=== PATIENT | female | born 1985 | race Caucasian/White ===

== ENCOUNTER 2019-07-28 20:15 | Outpatient (CLI) | payer BC ==
[2019-07-28 21:08] VITALS: BP 142/88; PULSE 99; RESP 16; TEMP 98.9
--- NOTE | 2019-07-30 11:29 | P.MSEPDOC ---
Presenting Problems - Arrival Data Date of Arrival on Unit: 07/28/19 Time of Arrival on Unit: 20:15 Mode of Transport: Ambulatory - Complaint OB-Reason for Admission/Chief Complaint: Decreased Movement Medical History - Information : 1 Para: 0 Term: 0 : 0 Abortions: Spontaneous or Elective: 0 Number of Living Children: 0 - Gestational Age Gestational Age by MOISES (wks/days): 33 Weeks and 3 Days Review of Systems - Review of Systems Constitutional: No problems Breast: No problems ENT: No problems Cardiovascular: No problems Respiratory: No problems Gastrointestinal: No problems Genitourinary: No problems Musculoskeletal: No problems Neurological: No problems Skin: No problems Vital Signs - Temperature Temperature: 98.9 F Temperature Source: Temporal Artery Scan - Pulse Right Pulse Rate: 99 Pulse Assessment Method: Pulse Oximetry - Respirations Respiratory Rate: 16 O2 Sat by Pulse Oximetry: 97 - Blood Pressure Right Arm Blood Pressure: 142/88 Blood Pressure Mean: 106 Blood Pressure Source: Automatic Cuff Medical Screen Scoring (Pre) - Cervical Exam Dilation: Exam Deferred Effacement: Exam Deferred Membranes: Intact - Uterine Contractions Frequency: < 36 weeks = 6 Duration: N/A Intensity: N/A - Maternal Vital Signs Maternal Temperature: N/A Maternal Blood Pressure: N/A Signs of Preeclampsia: N/A Maternal Respirations: N/A - Maternal Trauma Maternal Trauma: N/A - Assessment - Baby A Baseline FHR: 145 Heart Rate - NICHD Category: Category I (Normal) = 0 NST: Reactive Position: N/A - Total Score - Baby A Total Score - Baby A: 6 - Total Score - Baby B Total Score - Baby B: 6 - Total Score - Baby C Total Score - Baby C: 6 - Level of Risk - Baby A Level of Risk - Baby A: Medium (6-9) - Level of Risk - Baby B Level of Risk - Baby B: Medium (6-9) - Level of Risk - Baby C Level of Risk - Baby C: Medium (6-9) Physician Notification (Pre) - Physician Notified Physician Notified Date: 07/28/19 Physician Notified Time: 20:45 - Notification Comment Comment: reported on pts c/o decreased fm this evening. reported on no pain, bleeding or leaking, and no other complaints or complications. dr lensmeyer in dept, reviewed strip. orders to d/c home with instructions, keep scheduled appt in office on . return with new or worsening needs. Disposition - Disposition OB Disposition: Discharge to home Discharge Date: 07/28/19 Discharge Time: 20:52 I agree with the RN Medical Screening Exam: Yes Risk & Benefit of care provided described in d/c instruction: Yes Diagnosis: DECREASED MOVEMENTS, THIRD TRIMESTER, FETUS 1
== END 2019-07-28 20:52 | disposition home or self-care (01) ==
LOC: FBPOP 20:15
PROVIDERS: ATTEND Obstetrics & Gynecology
DX: O36.8131 Decreased fetal movements, third trimester, fetus 1 (principal); Z3A.33 33 weeks gestation of pregnancy
CPT/HCPCS: 59025; 99213

== ENCOUNTER 2019-08-14 10:21 | Outpatient (CLI) | payer BC ==
[2019-08-14 12:05] VITALS: BP 132/77; PULSE 104; RESP 20; TEMP 98.4
--- NOTE | 2019-09-25 10:39 | P.MSEPDOC ---
Presenting Problems - Arrival Data Date of Arrival on Unit: 08/14/19 Time of Arrival on Unit: 10:32 Mode of Transport: Ambulatory - Complaint OB-Reason for Admission/Chief Complaint: NST Comment: pt arrived c/o decreased movement since last night Medical History - Information : 1 Para: 0 Term: 0 : 0 Abortions: Spontaneous or Elective: 0 Number of Living Children: 0 - Gestational Age Gestational Age by MOISES (wks/days): 35 Weeks and 6 Days Review of Systems - Review of Systems Constitutional: No problems Breast: No problems ENT: No problems Cardiovascular: No problems Respiratory: No problems Gastrointestinal: No problems Genitourinary: No problems Musculoskeletal: No problems Neurological: No problems Skin: No problems Vital Signs - Temperature Temperature: 98.4 F Temperature Source: Oral - Pulse Right Brachial Pulse Rate: 104 Pulse Assessment Method: Automatic Cuff - Respirations Respiratory Rate: 20 Oxygen Delivery Method: Room Air - Blood Pressure Right Arm Blood Pressure: 132/77 Blood Pressure Mean: 95 Blood Pressure Source: Automatic Cuff Medical Screen Scoring (Pre) - Cervical Exam Dilation: Exam Deferred Effacement: Exam Deferred Membranes: Intact - Uterine Contractions Frequency: > 5 minutes apart = 1 Duration: N/A Intensity: N/A - Maternal Vital Signs Maternal Temperature: N/A Maternal Blood Pressure: N/A Signs of Preeclampsia: N/A Maternal Respirations: N/A - Maternal Trauma Maternal Trauma: N/A - Assessment - Baby A Baseline FHR: 140 Heart Rate - NICHD Category: Category I (Normal) = 0 NST: Reactive Position: N/A Station: N/A - Total Score - Baby A Total Score - Baby A: 1 - Total Score - Baby B Total Score - Baby B: 1 - Total Score - Baby C Total Score - Baby C: 1 - Level of Risk - Baby A Level of Risk - Baby A: Low (0-5) - Level of Risk - Baby B Level of Risk - Baby B: Low (0-5) - Level of Risk - Baby C Level of Risk - Baby C: Low (0-5) Physician Notification (Pre) - Physician Notified Physician Notified Date: 08/14/19 Physician Notified Time: 11:40 New Order Received: Yes - Notification Comment Comment: may discharge to home undelivered with instructions. pt had a reactive NST Disposition - Disposition OB Disposition: Discharge to home Discharge Date: 08/14/19 Discharge Time: 11:55 I agree with the RN Medical Screening Exam: Yes Risk & Benefit of care provided described in d/c instruction: Yes Diagnosis: DECREASED MOVEMENTS, THIRD TRIMESTER, FETUS 1
== END 2019-08-14 11:55 | disposition home or self-care (01) ==
LOC: FBPOP 10:21
PROVIDERS: ATTEND Obstetrics & Gynecology Obstetrics
DX: O36.8131 Decreased fetal movements, third trimester, fetus 1 (principal); Z3A.35 35 weeks gestation of pregnancy
CPT/HCPCS: 59025; 99213

== ENCOUNTER 2019-09-02 21:56 | Inpatient (IN) | payer BC ==
[2019-09-02] MEDS ORDERED: TERBUTALINE 1 MG/ML VIAL SQ PRN (22:33)
[2019-09-02] MEDS ORDERED: OXYTOCIN 10 UNIT/ML 1 ML VIAL IM PRN (22:33)
[2019-09-02] MEDS ORDERED: LIDOCAINE 0.5% (PF) 5 MG/ML (50 ML SDV) SQ PRN (22:33)
[2019-09-02] MEDS ORDERED: CARBOPROST TROMETHAMINE 250 MCG/ML 1 ML AMP IM PRN (22:33)
[2019-09-02] MEDS ORDERED: METHYLERGONOVINE 0.2 MG/ML 1 ML AMP IM PRN (22:33)
[2019-09-02] MEDS ORDERED: BUTORPHANOL 1 MG/ML 1 ML VIAL IV PRN (22:34)
[2019-09-02] MEDS: LACTATED RINGERS 1,000 ML IV SCH (23:15)
[2019-09-02 23:44] LABS: Basophils % (A) 0 %; Eosinophils # (A) 0.1 k/uL (0-0.7); Eosinophils % (A) 1 %; HCT 37.7 % (34.0-46.0); Lymphocytes # (A) 1.8 k/uL (1.0-4.8); Lymphocytes % (A) 17 %; MCH 32.4 pg (25.0-35.0); MCHC 34.5 g/dL (31.0-37.0); MCV 94.1 fL (80.0-100.0); Mean Platelet Volume 10.2; Monocytes # (A) 0.5 k/uL (0-1.0); Monocytes % (A) 5 %; Neutrophils # (A) 7.8 k/uL (1.3-7.7); Neutrophils % (A) 75 %; Platelet Count 300 k/uL (150-450); RBC 4.01 m/uL (3.80-5.40); RDW 12.8 % (11.5-15.5); WBC 10.4 k/uL (3.8-10.6)
[2019-09-03] MEDS ORDERED: OXYTOCIN 30 UNITS/500 ML NS 30 UNIT in SALINE 1 500ML.BAG IV SCH (03:00)
[2019-09-03] MEDS: LACTATED RINGERS 1,000 ML IV SCH ×2 (06:46→07:51)
[2019-09-03] MEDS ORDERED: SODIUM CHLORIDE 0.9% 100 ML BAG ONE (07:32)
[2019-09-03] MEDS ORDERED: fentaNYL (PF) 50 MCG/ML 5 ML AMP ONE (07:32)
[2019-09-03] MEDS ORDERED: ROPIVACAINE 5MG/ML 20ML VIAL ONE (07:32)
--- NOTE | 2019-09-03 08:17 | P.HPOB ---
History of Present Illness H&P Date: 09/03/19 Chief Complaint: IUP at 38 and 4/sevenths weeks, spontaneous rupture of memfarida julian This is a pleasant 34-year-old 1 para 0 at 38-4/7 weeks that presents to labor and delivery with complaints of spontaneous rupture of membranes, clear in nature. Patient states her water broke around 2100 and it was noted to be clear. Patient noted and a regular contraction. On presentation to labor and delivery she was noted to be grossly ruptured, cervix was noted to be 1 cm. She was maurice every 2-5 minutes and the baby had category 1 heart tones. Patient has been receiving routine care with myself that has been essentially uncomplicated. On blood work showed a blood type of O+, rubella immune, B surface antigen negative, HIV negative, RPR nonreactive, GBS is negative. Review of Systems Constitutional: Denies chills, Denies fatigue, Denies fever Ears, nose, mouth and throat: Denies headache Cardiovascular: Reports leg edema Respiratory: Denies dyspnea Gastrointestinal: Denies nausea, Denies vomiting Genitourinary: Reports Past Medical History Past Medical History: No Reported History History of Any Multi-Drug Resistant Organisms: None Reported Past Surgical History: No Surgical Hx Reported Past Anesthesia/Blood Transfusion Reactions: No Reported Reaction Past Psychological History: Depression Smoking Status: Never smoker Past Alcohol Use History: None Reported Past Drug Use History: None Reported - Past Family History Father Family Medical History: Blood Disorder, Coronary Artery Disease (CAD) Additional Family Medical History / Comment(s): hemocromatosis, dad from heart attack, Medications and Allergies Home Medications Medication Instructions Recorded Confirmed Type Pnv,Calcium 72/Iron/Folic Acid 1 each PO DAILY 07/28/19 09/02/19 History [ Plus Tablet] Allergies Allergy/AdvReac Type Severity Reaction Status Date / Time No Known Allergies Allergy Verified 09/02/19 22:09 Exam Osteopathic Statement: *. No significant issues noted on an osteopathic structural exam other than those noted in the History and Physical/Consult. Vital Signs Temp Pulse Resp BP Pulse Ox 09/02/19 23:15 99.2 F 83 18 134/88 100 09/02/19 22:30 99.2 F 83 18 134/88 100 Intake and Output 09/02/19 09/03/19 09/03/19 22:59 06:59 14:59 Intake Total 1000 Balance 1000 Intake: IV 1000 Other: # Voids 4 Weight 73.028 kg 73.028 kg Targeted physical exam is performed in this date in general this a well- nourished well-developed female in no acute distress, breathing is noted to be nonlabored heart has a regular rate and rhythm, abdomen is gravid and appropriate for gestational age, heart tones returned be category 1 and she is maurice every 2-3 minutes, on cervical exam she is 4/90/-2. Results Result Diagrams: 09/02/19 23:05 Abnormal Lab Results - Last 24 Hours (Table) 09/02/19 Range/Units 23:05 Neutrophils # 7.8 H (1.3-7.7) k/uL Assessment and Plan (1) Term Current Visit: Yes Status: Acute Code(s): Z34.90 - ENCNTR FOR SUPRVSN OF NORMAL , UNSP, UNSP TRIMESTER SNOMED Code(s): 19816577 (2) SROM (spontaneous rupture of membranes) Current Visit: Yes Status: Acute Code(s): NQM5174 - SNOMED Code(s): 516906019 Plan: Patient is admitted to labor and delivery for augmentation of labor given spontaneous rupture of membranes. Patient will be ruptured 12 hours at 9 AM this morning therefore antibiotics will be started. This was discussed the patient and she states understanding. We'll continue Pitocin augmentation per hospital protocol, and anticipate spontaneous vaginal delivery later today.
[2019-09-03] MEDS ORDERED: AMPICILLIN 2,000 MG in SODIUM CHLORIDE 0.9% 100 ML IVPB STA (08:18)
[2019-09-03] MEDS ORDERED: WITCH HAZEL 1 EACH MED..PAD TOPICAL PRN (10:46)
[2019-09-03] MEDS ORDERED: diphenhydrAMINE 25 MG CAP PO PRN (10:46)
[2019-09-03] MEDS ORDERED: diphenhydrAMINE 50 MG CAP PO PRN (10:46)
[2019-09-03] MEDS ORDERED: ACETAMINOPHEN TAB 325 MG TAB PO PRN (10:46)
[2019-09-03] MEDS ORDERED: SIMETHICONE 80 MG CHEWABLE PO PRN (10:46)
[2019-09-03] MEDS ORDERED: LANOLIN CREAM 5 GM TUBE TOPICAL PRN (10:46)
[2019-09-03] MEDS ORDERED: BENZOCAINE/MENTHOL SPRAY 1 GM/SPRAY AEROSOL TOPICAL PRN (10:46)
[2019-09-03] MEDS ORDERED: diphenhydrAMINE 50 MG/ML 1 ML VIAL IVP PRN ×2 (10:46)
[2019-09-03] MEDS ORDERED: HYDROcodone/APAP 5-325MG 1 EACH TAB PO PRN (10:46)
[2019-09-03] MEDS ORDERED: HYDROCORTISONE 2.5% RECTAL CREAM 30 GM TUBE RECTAL PRN (10:46)
[2019-09-03] MEDS ORDERED: ZOLPIDEM 5 MG TAB PO PRN (10:46)
--- NOTE | 2019-09-03 10:50 | P.PROBDLV ---
Vaginal Delivery Note - . Vaginal Delivery Note: This pleasant 34-year-old 1 para 0 at 38-4/7 weeks that presents with complaints of spontaneous rupture of membranes at 2100. Patient noted the fluid to be clear in nature. Patient was admitted to labor and delivery and Pitocin augmentation late of labor was begun approximate 6 hours after rupture of membranes. Patient was noted to be GBS negative. Pitocin was started per hospital protocol. Patient progressed to 4 cm became uncomfortable therefore requested epidural placement. Epidural was placed without difficulty by the anesthesia . Patient progressed to complete began pushing minute normal spontaneous vaginal delivery of a viable female infant at 1031, weight of 6 pounds 8.9 ounces with Apgars of 9 and 10 at one and 5 minutes respectively. After two-minute delayed the umbilical cord was doubly clamped and cut the placenta was delivered spontaneously intact with a three-vessel cord being noted. No vaginal lacerations were noted. A small hematoma was noted on the patient's left vaginal sidewall no expansion was noted. Estimated blood loss was 150 mL patient and infant tolerated delivery well and are resting comfortably.
[2019-09-03] MEDS ORDERED: OXYTOCIN 20 UNITS/1000 ML NS 1,000 ML IV SCH (11:00)
[2019-09-03] MEDS ORDERED: ROPIVACAINE 100 MG, fentaNYL (PF) 200 MCG in SODIUM CHLORIDE 0.9% 76 ML EPIDURAL ONE (13:11)
[2019-09-03] MEDS: IBUPROFEN 600 MG TAB PO PRN (18:50)
[2019-09-03] MEDS: PRENATAL VIT-IRON-FOLIC ACID 1 EACH CAP PO SCH (21:01)
[2019-09-03] MEDS: AMPICILLIN 1,000 MG in SODIUM CHLORIDE 0.9% 50 ML IVPB SCH (21:02)
[2019-09-03] MEDS: SENNOSIDES-DOCUSATE SODIUM 1 EACH TAB PO SCH (21:04)
[2019-09-04] MEDS: IBUPROFEN 600 MG TAB PO PRN (07:52)
[2019-09-04] MEDS: PRENATAL VIT-IRON-FOLIC ACID 1 EACH CAP PO SCH (07:53)
[2019-09-04] MEDS: SENNOSIDES-DOCUSATE SODIUM 1 EACH TAB PO SCH (07:53)
[2019-09-04 08:04] LABS: Basophils % (A) 0 %; Eosinophils # (A) 0.2 k/uL (0-0.7); Eosinophils % (A) 1 %; HCT 34.9 % (34.0-46.0); HGB 11.8 gm/dL (11.4-16.0); Lymphocytes % (A) 15 %; MCH 32.6 pg (25.0-35.0); MCHC 33.9 g/dL (31.0-37.0); MCV 96.1 fL (80.0-100.0); Mean Platelet Volume 10.2; Monocytes # (A) 0.6 k/uL (0-1.0); Monocytes % (A) 4 %; Neutrophils # (A) 9.8 k/uL (1.3-7.7); Neutrophils % (A) 77 %; Platelet Count 281 k/uL (150-450); RBC 3.63 m/uL (3.80-5.40); RDW 12.9 % (11.5-15.5); WBC 12.7 k/uL (3.8-10.6)
--- NOTE | 2019-09-04 08:33 | P.DS ---
Providers Date of admission: 09/02/19 22:42 Expected date of discharge: 09/04/19 Attending physician: Marie Roberts Primary care physician: Stated None - Discharge Diagnosis(es) (1) Term Current Visit: Yes Status: Acute (2) SROM (spontaneous rupture of membranes) Current Visit: Yes Status: Acute (3) Status post vaginal delivery Current Visit: Yes Status: Acute Hospital Course: This is a pleasant 34-year-old 1 para 0 at 38-4/7 weeks that presented to labor and delivery with spontaneous rupture of membranes. Patient had been receiving routine care with myself and has been essentially u ncomplicated. Patient was admitted to labor and delivery and eventually Pitocin augmentation of labor was begun. Patient became uncomfortable requesting epidural. Epidural was placed without difficulty by the anesthesia department. Patient progressed to complete began pushing and had normal spontaneous vaginal delivery of a viable female infant at 1031, weight of 6 pounds 8.9 ounces with Apgars of 9 and 10 at one and 5 minutes respect daily. She did not sustain any vaginal lacerations during delivery. On this day #1 she is ambulating and voiding without difficulty. She is tolerating a regular diet without nausea or vomiting. Her lochia is minimal she is breast-feeding without difficulty. She does wish discharge home at 24 hours. Patient Condition at Discharge: Good Plan - Discharge Summary New Discharge Prescriptions: No Action Pnv,Calcium 72/Iron/Folic Acid [ Plus Tablet] 1 each PO DAILY Discharge Medication List Pnv,Calcium 72/Iron/Folic Acid [ Plus Tablet] 1 each PO DAILY 07/28/19 [History] Patient Instructions/Handouts: Vaginal Delivery (DC), Vaginal Delivery (GEN) Discharge Disposition: HOME SELF-CARE
[2019-09-05 01:30] VITALS: TEMP 98.1
[2019-09-05] MEDS: SENNOSIDES-DOCUSATE SODIUM 1 EACH TAB PO SCH ×2 (03:54→09:43)
[2019-09-05] MEDS: PRENATAL VIT-IRON-FOLIC ACID 1 EACH CAP PO SCH (09:43)
[2019-09-05 09:47] VITALS: BP 132/68; PULSE 83; RESP 16
== END 2019-09-05 15:10 | disposition home or self-care (01) | DRG 807 ==
LOC: FBPOP 21:56 → 4FBP 22:42
PROVIDERS: ADMIT Obstetrics & Gynecology Obstetrics; ATTEND Obstetrics & Gynecology Obstetrics
PROC: 10E0XZZ Delivery of Products of Conception, External Approach (ICD-10-PCS; principal; 2019-09-03)
PROC: 00HU33Z Insertion of Infusion Device into Spinal Canal, Percutaneous Approach (ICD-10-PCS; principal; 2019-09-03)
PROC: 3E0R3BZ Introduction of Anesthetic Agent into Spinal Canal, Percutaneous Approach (ICD-10-PCS; principal; 2019-09-03)
DX: O71.7 Obstetric hematoma of pelvis (principal); Z37.0 Single live birth; Z3A.38 38 weeks gestation of pregnancy; Z86.59 Personal history of other mental and behavioral disorders; Z82.49 Family history of ischemic heart disease and other diseases of the circulatory system
CPT/HCPCS: 59025; 84112; 85025; 86850; 86900; 86901; 99213

== ENCOUNTER 2023-07-28 10:07 | Emergency (ER) | payer BC ==
--- NOTE | 2023-07-28 11:21 | CT ---
EXAMINATION TYPE: CT brain willis araiza DATE OF EXAM: 07/28/2023 COMPARISON: HISTORY: HEADACHE, OFF BALANCE AFTER HITTING FACE ON SOMETHING X5 DAYS AGO, B/L BRUSIING TO EYES CT DLP: 986.5 mGycm Automated exposure control for dose reduction was used. TECHNIQUE: CT scan of the head and cervical spine are performed without contrast. FINDINGS: Head CT: Ventricles, basal cisterns and sulci over convexities within normal limits and there is no mass, mass effect or shift of midline structures. No abnormal density is seen throughout the brain parenchyma and there is no acute intra or extra-axia l hemorrhage. Posterior fossa including the brainstem, fourth ventricle and cerebellar pontine angles are grossly n ormal. The intraorbital contents appear normal and symmetric. Visualized paranasal sinuses are well aerated. CT cervical spine: Craniovertebral junction relationships and prevertebral soft tissues are normal. The cervical vertebral segments are normal in height and alignment and there is no fracture subluxati on. The disc spaces are well-maintained in height and there is no significant degenerative disc disease. The bony cervical canal is widely patent and there is no bony encroachment of the neural foramina. The paraspinal soft tissues unremarkable. IMPRESSION: 1. Head CT: No acute bleed or mass effect. 2. CT cervical spine: No acute trauma.
--- NOTE | 2023-07-28 11:23 | CT ---
EXAMINATION TYPE: CT facial bones wo con DATE OF EXAM: 07/28/2023 COMPARISON: HISTORY: HEADACHE, OFF BALANCE AFTER HITTING FACE ON SOMETHING X5 DAYS AGO, B/L BRUSIING TO EYES CT DLP: 986.5 mGycm Automated exposure control for dose reduction was used. TECHNIQUE: CT scan of the sinuses is performed without contrast, axial images are obtained, coronal r eformatted images are also reviewed. FINDINGS: The facial bones are intact and there is no fracture. The paranasal sinuses including the frontal, ethmoid, sphenoid, and maxillary sinuses bilaterally a re well-aerated without abnormal opacification. The ostiomeatal complex is patent bilaterally on the coronal images. Visualized portion of mastoid air cells show no abnormal opacification. The globes are intact bilate rally. IMPRESSION: 1. No facial bone fracture. 2. No sinusitis.
--- NOTE | 2023-07-28 11:37 | ED ---
Head Injury HPI - General Chief complaint: Head Injury Stated complaint: Fall,Dizziness Time Seen by Provider: 07/28/23 10:24 Source: patient, RN notes reviewed Mode of arrival: ambulatory Limitations: no limitations - History of Present Illness Initial comments: 38-year-old female presents emergency department chief complaint of head injury. Patient states this happened several days ago when she tripped over her cat striking her head on a countertop. She states that she lost conscious. She has been having ongoing headache, nausea vomiting, facial bruising. She states she just feels foggy. - Related Data Home Medications Medication Instructions Recorded Confirmed Vit No.180/Iron/Folic 1 each PO DAILY 07/28/19 09/02/19 [ Plus Tablet] Allergies/Adverse reactions: Allergies Allergy/AdvReac Type Severity Reaction Status Date / Time No Known Allergies Allergy Verified 07/28/23 10:23 Review of Systems ROS Statement: Those systems with pertinent positive or pertinent negative responses have been documented in the HPI. ROS Other: All systems not noted in ROS Statement are negative. Past Medical History Past Medical History: No Reported History History of Any Multi-Drug Resistant Organisms: None Reported Past Surgical History: No Surgical Hx Reported Past Anesthesia/Blood Transfusion Reactions: No Reported Reaction Past Psychological History: Depression Smoking Status: Never smoker Past Alcohol Use History: Occasional Past Drug Use History: None Reported - Past Family History Father Family Medical History: Blood Disorder, Coronary Artery Disease (CAD) Additional Family Medical History / Comment(s): hemocromatosis, dad from heart attack, General Exam Limitations: no limitations General appearance: alert, in no apparent distress Head exam: Present: atraumatic, normocephalic, normal inspection Eye exam: Present: PERRL, EOMI, periorbital tenderness (Bilateral ecchymosis). Absent: normal appearance, scleral icterus, conjunctival injection, periorbital swelling ENT exam: Present: mucous membranes moist, TM's normal bilaterally, normal external ear exam. Absent: normal exam (Nasal tenderness) Neck exam: Present: normal inspection, full ROM. Absent: tenderness, meningismus, lymphadenopathy Respiratory exam: Present: normal lung sounds bilaterally. Absent: respiratory distress, wheezes, rales, rhonchi, stridor Neurological exam: Present: alert, oriented X3, CN II-XII intact, reflexes normal. Absent: motor sensory deficit Course Vital Signs 07/28/23 07/28/23 10:21 11:59 Temperature 98.7 F 98.5 F Pulse Rate 73 70 Respiratory 20 18 Rate Blood Pressure 128/89 125/82 O2 Sat by Pulse 99 99 Oximetry Medical Decision Making - Medical Decision Making Was pt. sent in by a medical professional or institution (GUILLERMINA Garcia, PHYSIATRIST, urgent care, hospital, or fci...) When possible be specific @ -No Did you speak to anyone other than the patient for history (EMS, parent, family, police, friend...)? What history was obtained from this source @ -No Did you review nursing and triage notes (agree or disagree)? Why? @ -I reviewed and agree with nursing and triage notes Were old charts reviewed (outside hosp., previous admission, EMS record, old EKG, old radiological studies, urgent care reports/EKG's, fci records)? Report findings @ -No old charts were reviewed Differential Diagnosis (chest pain, altered mental status, abdominal pain women, abdominal pain men, vaginal bleeding, weakness, fever, dyspnea, syncope, headache, dizziness, GI bleed, back pain, seizure, CVA, palpatations, mental health, musculoskeletal)? @ -Contusion, orbital fracture, facial fracture, intracranial hemorrhage, cervical fracture EKG interpreted by me (3pts min.). @ -As above X-rays interpreted by me (1pt min.). @ -None done CT interpreted by me (1pt min.). @ -[CT brain, C-spine no acute intracranial, cervical fracture, malalignment, CT facial bones no acute fracture U/S interpreted by me (1pt. min.). @ -None done What testing was considered but not performed or refused? (CT, X-rays, U/S, labs)? Why? @ -None What meds were considered but not given or refused? Why? @ -None Did you discuss the management of the patient with other professionals (professionals i.e. GUILLERMINA Garcia, PHYSIATRIST, lab, RT, psych nurse, social director, jazz musician, teacher, diplomatic officer, major case detective)? Give summary @ -No Was smoking cessation discussed for >3mins.? @ -No Was critical care preformed (if so, how long)? @ -No Were there social determinants of health that impacted care today? How? (Homelessness, low income, unemployed, alcoholism, drug addiction, transportation, low edu. Level, literacy, decrease access to med. care, nursing home, rehab)? @ -No Was there de-escalation of care discussed even if they declined (Discuss DNR or withdrawal of care, Hospice)? DNR status @ -No What co-morbidities impacted this encounter? (DM, HTN, Smoking, COPD, CAD, Cancer, CVA, ARF, Chemo, Hep., AIDS, mental health diagnosis, sleep apnea, morbid obesity)? @ -None Was patient admitted / discharged? Hospital course, mention meds given and route, prescriptions, significant lab abnormalities, going to OR and other pertinent info. @ -[h discharge all imaging was negative. Patient has a facial contusion, concussion symptoms was discharged in stable condition return pressure discussed. Undiagnosed new problem with uncertain prognosis? @ -No Drug Therapy requiring intensive monitoring for toxicity (Heparin, Nitro, Insulin, Cardizem)? @ -No Were any procedures done? @ -No Diagnosis/symptom? @ -[Close head injury, concussion, facial contusion Acute, or Chronic, or Acute on Chronic? @ -Acute Uncomplicated (without systemic symptoms) or Complicated (systemic symptoms)? @ -[Uncomplicated Side effects of treatment? @ -[No Exacerbation, Progression, or Severe Exacerbation? @ -No Poses a threat to life or bodily function? How? (Chest pain, [place], [place], pneumonia, PE, COPD, DKA, ARF, appy, cholecystitis, CVA, Diverticulitis, Homicidal, Suicidal, threat to staff... and all critical care pts) @ -No Disposition Clinical Impression: Closed head injury, Contusion of face Disposition: HOME SELF-CARE Condition: Stable Instructions (If sedation given, give patient instructions): Concussion (ED) Additional Instructions: Please return to the Emergency Department if symptoms worsen or any other concerns. Is patient prescribed a controlled substance at d/c from ED?: No Referrals: Kelvin Toth MD [Primary Care Provider] - 1-2 days Time of Disposition: 11:37
[2023-07-28 12:14] VITALS: BP 125/82; PULSE 70; RESP 18; TEMP 98.5
== END 2023-07-28 12:00 | disposition home or self-care (01) ==
LOC: EC 10:07
DX: S00.12XA Contusion of left eyelid and periocular area, initial encounter (principal); S00.11XA Contusion of right eyelid and periocular area, initial encounter; S06.0XAA Concussion with loss of consciousness status unknown, initial encounter; R40.2410 Glasgow coma scale score 13-15, unspecified time; Z86.59 Personal history of other mental and behavioral disorders; W22.8XXA Striking against or struck by other objects, initial encounter
CPT/HCPCS: 70450; 70486; 72125; 99283

== ENCOUNTER → 2024-11-01 | Outpatient (CLI) | payer BC ==
[2024-11-02 01:48] LABS: Basophils # (A) 0.05 X 10*3/uL (0.00-0.10); Basophils % (A) 0.8 %; Eosinophils % (A) 1.6 %; HCT 43.5 % (37.2-46.3); HGB 14.4 g/dL (12.0-15.0); Lymphocytes # (A) 2.26 X 10*3/uL (0.90-5.00); Lymphocytes % (A) 35.1 %; MCHC 33.1 g/dL (32.0-37.0); MCV 96.7 FL (80.0-97.0); Mean Platelet Volume 11.8 FL (9.5-12.2); Monocytes # (A) 0.52 X 10*3/uL (0.20-1.00); Monocytes % (A) 8.1 %; NRBC Per 100 WBC 0 X 10*3/uL (0.00-0.01); Neutrophils % (A) 54.2 %; Platelet Count 316 X 10*3/uL (140-440); RDW 12.7 % (11.5-14.5); WBC 6.44 X 10*3/uL (4.50-10.00)
[2024-11-02 02:45] LABS: ALT 20 U/L (8-44); AST 22 U/L (13-35); Albumin 4.5 g/dL (3.8-4.9); Albumin/Globulin Ratio 1.67 Ratio (1.60-3.17); Alkaline Phosphatase 75 U/L (41-126); BUN/Creat Ratio 16.71 Ratio (12.00-20.00); Blood Urea Nitrogen 11.7 mg/dL (9.0-27.0); Calcium 9.4 mg/dL (8.7-10.3); Carbon Dioxide 21.7 mmol/L (21.6-31.8); Chloride 102 mmol/L (96-109); Chol/HDL Ratio 2.66 Ratio; Globulin 2.7 g/dL (1.6-3.3); Glucose 87 mg/dL (70-110); LDL Cholesterol,Calculated 153.3 mg/dL (0.0-131.0); Potassium 4.3 mmol/L (3.5-5.5); Sodium 136 mmol/L (135-145); T4, Free (Free Thyroxine) 1.18 ng/dL (0.80-1.80); Total Bilirubin 0.5 mg/dL (0.3-1.2); Total Protein 7.2 g/dL (6.2-8.2); VLDL Calculation 14.66 mg/dL (5.00-40.00)
== END | disposition home or self-care (01) ==
LOC: LABWHC1 14:32
PROVIDERS: ATTEND Internal Medicine Geriatric Medicine
DX: E78.2 Mixed hyperlipidemia (principal); E07.9 Disorder of thyroid, unspecified; E55.9 Vitamin D deficiency, unspecified; R73.9 Hyperglycemia, unspecified
CPT/HCPCS: 36415; 80053; 80061; 82306; 83036; 84439; 84443; 85025

== ENCOUNTER → 2024-11-07 | Outpatient (CLI) | payer BC ==
--- NOTE | 2024-11-07 11:49 | MM ---
Reason for Exam: Screening (asymptomatic). Baseline mammogram. Patient History: Menarche at age 15. First Full-Term at age 34. Late child-bearing (after 30). Premenopausal. Last menstrual period: 10/09/2024 Risk Values: Alee 5 year model risk: 0.6%. NCI Lifetime model risk: 12.5%. Prior Study Comparison: Patient's first Mammogram. Tissue Density: The breasts are heterogeneously dense, which may obscure small masses. Findings: Analyzed By CAD. Right breast: There is no suspicious group of microcalcifications or new suspicious mass. Benign-appearing calcifications right breast. Left breast: There is no suspicious group of microcalcifications or new suspicious mass. Benign-appearing calcifications left breast. Overall Assessment: Benign, BI-RAD 2 Management: Screening Mammogram of both breasts in [address] [facility] will attempt to contact patient to return for supplemental views and ultrasound if indicated. Patient should continue monthly self-breast exams. A clinical breast exam by your physician is recommended on an annual basis. This exam should not preclude additional follow-up of suspicious palpable abnormalities. Note on Alee scores and lifetime risk: 1. A Alee score greater than 3% is considered moderate risk. If this is the case, consider specialist referral to assess eligibility for a risk reducing agent. 2. If overall lifetime risk for the development of breast cancer is 20% or higher, the patient may qualify for future screening with alternating mammogram and breast MRI. [facility], , 11/07/2024 11:46 AM. Electronically signed and approved by: Alexander Pond DO
== END | disposition home or self-care (01) ==
LOC: RADMAMWWP 11:15
PROVIDERS: ATTEND Internal Medicine Geriatric Medicine
DX: Z12.31 Encounter for screening mammogram for malignant neoplasm of breast (principal); R92.333 Mammographic heterogeneous density, bilateral breasts; R92.1 Mammographic calcification found on diagnostic imaging of breast
CPT/HCPCS: 77063; 77067